=== PATIENT | female | born 1985 | race Caucasian/White ===

== ENCOUNTER 2016-09-19 14:08 | Emergency (ER) | payer OTHER ==
[2016-09-19 14:21] VITALS: TEMP 97.7; BMI 26.6
--- NOTE | 2016-09-19 14:52 | PDOC ---
History of Present Illness - General History Source: Patient, Old Records Exam Limitations: No Limitations <Fay Gonzalez - Last Filed: 09/19/16 14:50> - General History Source: Patient Exam Limitations: No Limitations - History of Present Illness Initial Comments: 09/19/16 14:50 The patient is a 31-year-old man with no past medical history who presents to the emergency department for further evaluation of palpitations today. Patient states that he feels as if his heart beats "hard" and fast. He admits that he drink caffeine but he has not consumed more than usual. No associated symptoms of chest pain, lightheadedness, dizziness, loss of consciousness, nausea, vomiting, visual changes. He also reports having a loss of appetite and states that "food does not taste the same" to him. No recent stressors/ anxiety. No other complaints. No fever, chills. Allergies: NKDA Past Surgical History: Social History: No tobacco, EtOH and recreational drug use. <Belkys Car - Last Filed: 09/19/16 15:24> - General Chief Complaint: Chest Pain Stated Complaint: CHEST PAIN Time Seen by Provider: 09/19/16 14:22 Past History - Psycho/Social/Smoking Cessation Hx Anxiety: No Suicidal Ideation: No Smoking History: Never smoked Have you smoked in the past 12 months: No Information on smoking cessation initiated: No Hx Alcohol Use: No Drug/Substance Use Hx: No Substance Use Type: None <Fay Gonzalez - Last Filed: 09/19/16 14:50> Review of Systems - Review of Systems Able to Perform ROS?: Yes Comments:: 09/19/16 14:50 CONSTITUTIONAL: Present: Loss of Appetite. Absent: fever, chills, diaphoresis, generalized weakness, malaise HEENT: Absent: rhinorrhea, nasal congestion, throat pain, throat swelling, difficulty swallowing, mouth swelling, ear pain, eye pain, visual Changes CARDIOVASCULAR: Preset: Palpitations. Absent: chest pain, syncope, irregular heart rate, lightheadedness, peripheral edema RESPIRATORY: Absent: cough, shortness of breath, dyspnea with exertion, orthopnea, wheezing, stridor, hemoptysis GASTROINTESTINAL:Absent: abdominal pain, abdominal distension, nausea, vomiting , diarrhea, constipation, melena, hematochezia GENITOURINARY: Absent: dysuria, frequency, urgency, hesitancy, hematuria, flank pain, genital pain MUSCULOSKELETAL: Absent: myalgia, arthralgia, joint swelling SKIN: Absent: rash, itching, pallor HEMATOLOGIC/IMMUNOLOGIC: Absent: easy bleeding, easy bruising, lymphadenopathy, frequent infections ENDOCRINE:Absent: unexplained weight gain, unexplained weight loss, heat intolerance, cold intolerance NEUROLOGIC: Absent: headache, focal weakness or paresthesias, dizziness, unsteady gait, seizure, mental status changes, bladder or bowel incontinence PSYCHIATRIC: Absent: anxiety, depression, suicidal or homicidal ideation, hallucinations <Car[employer]ys - Last Filed: 09/19/16 15:24> *Physical Exam - Vital Signs Last Vital Signs Temp Pulse Resp BP Pulse Ox 97.7 F 88 18 116/74 99 09/19/16 14:16 09/19/16 14:16 09/19/16 14:16 09/19/16 14:16 09/19/16 14:16 <Fay Gonzalez - Last Filed: 09/19/16 14:50> - Vital Signs Last Vital Signs Temp Pulse Resp BP Pulse Ox 97.7 F 88 18 116/74 99 09/19/16 14:16 09/19/16 14:16 09/19/16 14:16 09/19/16 14:16 09/19/16 14:16 - Physical Exam Comments: 09/19/16 14:50 GENERAL: Well developed, well nourished. Awake and alert. No acute distress. HEENT: Normocephalic, atraumatic. PERRLA, EOMI. No conjunctival pallor. Sclera are non-icteric. Moist mucous membranes. Oropharynx is clear. NECK: Supple. Full ROM. No JVD. CARDIOVASCULAR: Regular rate and rhythm. No murmurs, rubs, or gallops. PULMONARY: No evidence of respiratory distress. Lungs clear to auscultation bilaterally. No wheezing, rales or rhonchi. ABDOMINAL: Soft. Non-tender. Non-distended. No rebound or guarding. No organomegaly. Normoactive bowel sounds. MUSCULOSKELETAL: Normal range of motion at all joints. No bony deformities or tenderness. No CVA tenderness. EXTREMITIES: No cyanosis. No clubbing. No edema. No calf tenderness. SKIN: Warm and dry. Normal capillary refill. No rashes. No jaundice. NEUROLOGICAL: Alert, awake, appropriate. Cranial nerves 2-12 intact. . Normal speech. PSYCHIATRIC: Cooperative. Good eye contact. Appropriate mood and affect. <Belkys Car - Last Filed: 09/19/16 15:24> ED Treatment Course - RADIOLOGY Radiology Studies Ordered: Category Date Time Status CHEST PA & LAT [RAD] Stat Radiology 09/19/16 14:44 Ordered <Fay Gonzalez - Last Filed: 09/19/16 14:50> Medical Decision Making - Medical Decision Making 09/19/16 14:50 31-year-old male with history of palpitations in the past presents the emergency Department with complaints of heart racing and "beating hard". It is currently asymptomatic. Differential diagnosis includes but is not limited to: Cardiac arrhythmia, hyperthyroid, dehydration, electrolyte abnormality, toxic/ metabolic derangement. Plan: 1. EKG 2. Chest x-ray 3. Labs including TSH 4. Observe and reevaluate <Fay Gonzalez - Last Filed: 09/19/16 14:50> *DC/Admit/Observation/Transfer - Attestations Physician Attestion: 09/19/16 14:51 I, Dr. Fay Gonzalez, attest that the scribes documentation that appears above has been prepared under my direction and personally reviewed by me in its entirety. I confirmed that the note above accurately reflects all work, treatment, procedures, and medical decision-making performed by me. <Fay Gonzalez - Last Filed: 09/19/16 14:50> - Attestations Scribe Attestion: 09/19/16 14:50 Documentation prepared by Belkys Car, acting as medical certification specialist for Fay Gonzalez MD. <Belkys Car - Last Filed: 09/19/16 15:24> Diagnosis at time of Disposition: Palpitations
[2016-09-19 16:34] LABS: BASOPHIL 0.3 % (0-2.0); EOSINOPHIL 0.5 % (0-4.5); MCH 29.9 pg (25.7-33.7); MCHC 33.8 g/dl (32.0-35.9); MEAN CELL VOLUME 88.2 fl (80-96); NEUTROPHILS 82.8 % (42.8-82.8); PLATELET COUNT 196 K/MM3 (134-434); WHITE BLOOD COUNT 7.7 K/mm3 (4.0-10.0)
[2016-09-19 16:36] LABS: ALBUMIN 3.9 g/dl (3.4-5.0); ANION GAP 12 (8-16); BILIRUBIN,TOTAL 0.8 mg/dL (0.2-1.0); CALCIUM 9.1 mg/dL (8.5-10.1); CO2 26 mmol/L (21-32); COCKROFT - GAULT 148.59; CREATININE 0.8 mg/dL (0.7-1.3); GLUCOSE,RANDOM 63 mg/dL (74-106); SGOT/AST 8 U/L (15-37); SGPT/ALT 18 U/L (12-78); TOT PROT 6.7 g/dl (6.4-8.2)
[2016-09-19 16:39] LABS: ALK PHOS 61 U/L (45-117); TROPONIN I < 0.02 ng/ml (0.00-0.05)
--- NOTE | 2016-09-19 18:40 | PDOC ---
*Physical Exam - Vital Signs Last Vital Signs Temp Pulse Resp BP Pulse Ox 97.7 F 88 18 116/74 99 09/19/16 14:16 09/19/16 14:16 09/19/16 14:16 09/19/16 14:16 09/19/16 14:16 ED Treatment Course - LABORATORY CBC & Chemistry Diagram: 09/19/16 15:55 09/19/16 15:55 - ADDITIONAL ORDERS Additional order review: Laboratory Results 09/19/16 09/19/16 15:55 14:50 Sodium 144 Potassium 3.5 Chloride 106 Carbon Dioxide 26 Anion Gap 12 BUN 6 L Creatinine 0.8 Creat Clearance w eGFR > 60 Random Glucose 63 L Calcium 9.1 Total Bilirubin 0.8 AST 8 L ALT 18 Alkaline Phosphatase 61 Creatine Kinase 30 L Troponin I < 0.02 Total Protein 6.7 Albumin 3.9 Lipase 100 TSH 0.80 09/19/16 15:55 RBC 4.36 MCV 88.2 MCHC 33.8 RDW 13.0 MPV 9.0 Neutrophils % 82.8 Lymphocytes % 10.8 Monocytes % 5.6 Eosinophils % 0.5 Basophils % 0.3 Medical Decision Making - Medical Decision Making 09/19/16 18:37 Sign-out received from outgoing Emergency Physician Dr. Gonzalez Pt interviewed and examined Ancillary studies reviewed Case discussed in detail with oncoming Emergency Physician including history, physical exam and ancillary studies. CBC, BMP 09/19/16 15:55 09/19/16 15:55 CMP Sodium 144 mmol/L (136-145) 09/19/16 15:55 Potassium 3.5 mmol/L (3.5-5.1) 09/19/16 15:55 Chloride 106 mmol/L (98-107) 09/19/16 15:55 Carbon Dioxide 26 mmol/L (21-32) 09/19/16 15:55 Anion Gap 12 (8-16) 09/19/16 15:55 BUN 6 mg/dL (7-18) L 09/19/16 15:55 Creatinine 0.8 mg/dL (0.7-1.3) 09/19/16 15:55 Creat Clearance w eGFR > 60 (>60) 09/19/16 15:55 Random Glucose 63 mg/dL (74-106) L 09/19/16 15:55 Calcium 9.1 mg/dL (8.5-10.1) 09/19/16 15:55 Total Bilirubin 0.8 mg/dL (0.2-1.0) 09/19/16 15:55 AST 8 U/L (15-37) L 09/19/16 15:55 ALT 18 U/L (12-78) 09/19/16 15:55 Alkaline Phosphatase 61 U/L (45-117) 09/19/16 15:55 Creatine Kinase 30 IU/L (39-308) L 09/19/16 15:55 Troponin I < 0.02 ng/ml (0.00-0.05) 09/19/16 15:55 Total Protein 6.7 g/dl (6.4-8.2) 09/19/16 15:55 Albumin 3.9 g/dl (3.4-5.0) 09/19/16 15:55 Lipase 100 U/L (73-393) 09/19/16 15:55 TSH 0.80 uIU/ml (0.358-3.74) 09/19/16 14:50 Patient was reassessed and has no symptoms at this time. We'll give patient referral to cardiology for Holter monitor referral. Return precautions given. I discussed the physical exam findings, ancillary test results and final diagnoses with the patient. I answered all of the patient's questions. The patient was satisfied with the care received and felt comfortable with the discharge plan and treatment plan. The patient will call their primary care physician within 24 hours to arrange follow-up and will return to the Emergency Department with any new, persistant or worsening symptoms. *DC/Admit/Observation/Transfer Diagnosis at time of Disposition: Palpitations - Discharge Dispostion Disposition: HOME Condition at time of disposition: Stable Admit: No - Referrals Referrals: Richar Rivera MD [Staff Physician] - Abdias Gann MD [Staff Physician] - - Patient Instructions Printed Discharge Instructions: DI for Palpitations Additional Instructions: Please follow up with a batch and furnace manager for evaluation for holter monitor. Call to schedule an appointment.
[2016-09-19 19:51] VITALS: BP 122/68; PULSE 72
--- NOTE | 2016-09-20 12:44 | EKG ---
Test Reason : Blood Pressure : / mmHG Vent. Rate : 092 BPM Atrial Rate : 092 BPM P-R Int : 132 ms QRS Dur : 076 ms QT Int : 356 ms P-R-T Axes : 057 077 060 degrees QTc Int : 440 ms NORMAL SINUS RHYTHM NORMAL ECG NO PREVIOUS ECGS AVAILABLE Confirmed by PADMINI AGUIAR MD ([id number]) on 09/20/2016 12:44:24 PM Referred By: Confirmed By:PADMINI AGUIAR MD
== END 2016-09-19 19:52 | disposition home or self-care (01) ==
LOC: EDSEX 14:08 → JER 14:08
DX: R00.2 Palpitations (principal)
CPT/HCPCS: 36415; 71020-TC; 80053; 82550; 83690; 84443; 84484; 85025; 93005; 93010; 99284-25